=== PATIENT | male | born 1960 | race Caucasian/White ===

== ENCOUNTER 2016-07-18 11:59 | Emergency (ER) | payer OTHER ==
[~2016-07-18] VITALS: Ht 187.9 cm; Wt 108.9 kg
[~2016-07-18 11:59] MED LIST: 'PARAFON FORTE500 M1 PO; HYDROCODONE BIT1 T11 PO; NAPROSYN500 MG PO
[2016-07-18] MEDS ORDERED: CYCLOBENZAPRINE10 MG PO (13:37)
[2016-07-18] MEDS ORDERED: PREDNISONE50 MG PO (13:37)
[2016-08-22] MEDS ORDERED: OXYBUTYNIN CHLOR5 MG PO (19:59)
[2016-08-22] MEDS ORDERED: ACETAMINOPHEN-O1 TAB PO (19:59)
[2016-08-22] MEDS ORDERED: CEPHALEXIN500 M1 PO (20:04)
== END 2016-07-18 13:40 | disposition home or self-care (01) ==
LOC: ED 11:59
DX: M54.42 Lumbago with sciatica, left side (principal); Z88.8 Allergy status to other drugs, medicaments and biological substances

== ENCOUNTER → 2020-06-28 | Outpatient (CLI) | payer BC ==
[~2020-06-28] MED LIST changes: +ACETAMINOPHEN-O1 TAB PO; +CEPHALEXIN500 M1 PO; +CYCLOBENZAPRINE10 MG PO; +OXYBUTYNIN CHLOR5 MG PO; +PREDNISONE50 MG PO
== END | disposition home or self-care (01) ==
LOC: COVID19 13:25
PROVIDERS: ATTEND Family Medicine
DX: Z20.822 Contact with and (suspected) exposure to COVID-19 (principal)

== ENCOUNTER → 2020-11-11 | Outpatient (CLI) | payer OTHER | END | disposition home or self-care (01) | LOC: RAD 13:34 | PROVIDERS: ATTEND Family Medicine | DX: M50.30 Other cervical disc degeneration, unspecified cervical region (principal); M48.02 Spinal stenosis, cervical region; G95.89 Other specified diseases of spinal cord; S14.109A Unspecified injury at unspecified level of cervical spinal cord, initial encounter; X58.XXXA Exposure to other specified factors, initial encounter; Y93.89 Activity, other specified; Y92.89 Other specified places as the place of occurrence of the external cause; Y99.8 Other external cause status ==

== ENCOUNTER → 2025-05-14 | Outpatient (CLI) | payer MEDICARE ==
[2025-05-14 12:41] LABS: BASO # 0.0 10*3/uL (0.0-0.1); BASO % 0.6 % (0.0-1.0); EOS # 0.1 10*3/uL (0.0-0.4); EOS % 1.3 % (1.0-4.0); MEAN CELL VOLUME 94.5 fl (80.0-94.0); MEAN CORPUSCULAR HGB 32.4 pg (27.0-31.0); MEAN PLATELET VOLUME 9.6 fl (9.6-12.3); MONO # 0.5 10*3/uL (0.1-1.0); MONO % 9.9 % (3.0-9.0); NEUT # 2.5 10*3/uL (2.3-7.9); NEUT % 46.6 % (47.0-73.0); NUCLEATED RED BLOOD CELL 0.0 % (0.0-0.0); NUCLEATED RED BLOOD CELL 0.0 10*3/uL (0.0-0.0); PLATELET COUNT AUTOMATED 187 10*3/uL (130-400); RED CELL DISTRI WIDTH 12.0 % (0-14.5); RETICULOCYTE % 1.40 % (0.50-2.50)
[2025-05-14 12:41] LABS: BILIRUBIN Negative (Negative); BLOOD Negative (Negative); CLARITY Clear (Clear); COLOR Yellow (Yellow); KETONE Negative (Negative); LEUKO ESTERASE Negative (Negative); NITRITE Negative (Negative); PH 6.0 (4.5-8.0); SPECIFIC GRAVITY 1.015 (1.001-1.030); UROBILINOGEN 1.0 E.U./dl (0.0-1.0)
[2025-05-14 12:51] LABS: EPITHELIAL CELLS 0-2; MUCOUS TRACE; RBC 0-2 rbc/hpf (0-2); WBC 0-2 wbc/hpf (0-5)
[2025-05-14 13:12] LABS: BUN 16 mg/dl (9-23); GAMMA GLUTAMYL TRANSFERASE 21 U/L (0-73); LDL CHOLESTEROL 61 mg/dL (9-159); SGPT/ALT 47 U/L (5-49)
[2025-05-16 09:07] LABS: ANTI-DSDNA ANTIBODIES 1 IU/mL (0-9)
== END | disposition home or self-care (01) ==
LOC: LAB 11:59
PROVIDERS: ATTEND Family Medicine
DX: R79.89 Other specified abnormal findings of blood chemistry (principal); E78.5 Hyperlipidemia, unspecified; E55.9 Vitamin D deficiency, unspecified; R53.83 Other fatigue

== ENCOUNTER → 2025-06-03 | Outpatient (CLI) | payer MEDICARE | END | disposition home or self-care (01) | LOC: US 01:21 | PROVIDERS: ATTEND Family Medicine | DX: R16.0 Hepatomegaly, not elsewhere classified (principal); R10.84 Generalized abdominal pain; R10.23 Pelvic and perineal pain bilateral; N50.819 Testicular pain, unspecified; N50.3 Cyst of epididymis; N43.2 Other hydrocele; D73.89 Other diseases of spleen; Z96.0 Presence of urogenital implants ==